=== PATIENT | male | born 1960 | race Two or more races ===

== ENCOUNTER 2017-03-24 05:05 | Inpatient (IN) | payer OTHER ==
[~2017-03-24] VITALS: Ht 172.7 cm; Wt 113.4 kg
[2017-03-24] VITALS (10 sets, daily range): BP systolic 135–170; BP diastolic 73–92
[2017-03-24] MEDS ORDERED: CELECOXIB 100 MG CAPSULE ONE (05:43)
[2017-03-24] MEDS ORDERED: oxyCODONE HCL SR 10MG TAB.SR.12H PO ONE (05:43)
[2017-03-24] MEDS ORDERED: ACETAMINOPHEN 325 MG TABLET ONE (05:43)
[2017-03-24] MEDS ORDERED: CEFAZOLIN SODIUM/DEXTROSE,ISO 100 ML IV ONE (05:44)
[2017-03-24] MEDS ORDERED: KETOROLAC TROMETHAMINE INJ 30 MG/ML VIAL ONE (05:56)
[2017-03-24] MEDS ORDERED: ANESTHESIA TRAY IN PYXIS 1 EA TRAY MC ONE (05:57)
[2017-03-24] MEDS ORDERED: BUPIVACAINE 0.5 % PF 150 MG/30 ML VIAL ONE (05:57)
[2017-03-24] MEDS ORDERED: BACITRACIN 50000 UNITS/VIAL ONE (05:57)
[2017-03-24] MEDS ORDERED: MIDAZOLAM HCL 2 MG/2ML VIAL ONE (06:22)
[2017-03-24] MEDS ORDERED: FENTANYL PF 100MCG/2ML AMPUL ONE (06:23)
[2017-03-24] MEDS ORDERED: KETAMINE HCL (500MG/10ML) 50 MG/ML VIAL ONE (06:23)
[2017-03-24] MEDS ORDERED: TRANEXAMIC ACID 3,000 MG in SODIUM CHLORIDE IRRIG SOLUTION 70 ML IR ONE (07:30)
[2017-03-24] MEDS ORDERED: DULCOLAX 10 MG/SUPP.RECT RC PRN (09:00)
[2017-03-24] MEDS ORDERED: AMBIEN 5 MG TABLET PO PRN (09:00)
[2017-03-24] MEDS ORDERED: TYLENOL 650 MG TABLET PO PRN (09:00)
[2017-03-24] MEDS ORDERED: HYDROCODONE/APAP 5/325MG 1 EACH TABLET PO PRN ×2 (09:00→13:00)
[2017-03-24] MEDS ORDERED: IV D5/0.45 NACL 1,000 ML IV PRN ×2 (09:00→10:50)
[2017-03-24] MEDS ORDERED: ZOFRAN 4mg/2ML IV PRN (09:00)
[2017-03-24] MEDS ORDERED: COLACE 250 MG CAPSULE PO PRN (09:00)
[2017-03-24] MEDS ORDERED: SENOKOT 8.6 MG TABLET PO PRN (09:00)
--- NOTE | 2017-03-24 09:15 | NUR ---
MS/petroleum terminal plant operator New admit from OR, s/p right knee arthroplasty by Dr Beltran. Vital signs upon return within normal range, no fever. Right knee with dressing, clean and dry. IV fluids infusing at 125ml/hr, no signs of infiltration. Family at bedside and both pateint and family updated as to plan of care for today. Oriented to new surroundings, aware of how to operate bed and how to call for help, stated understanding. Bed in low setting, side rails X2 in upright position, brakes locked. Call light within reach, will continue to monitor and ensure safety.
--- NOTE | 2017-03-24 10:15 | NUR ---
MS/RN Pain C/O pain 09/23 to right knee. [place] one tablet 5/325mg adminstered as ordered. Will monitor effectiveness.
[2017-03-24] MEDS ORDERED: ONDANSETRON HCL/PF 4 MG/2 ML VIAL IVP PRN (11:00)
[2017-03-24] MEDS ORDERED: Z GUARD REMEDY 2 OZ OINT TP PRN (11:00)
[2017-03-24] MEDS ORDERED: ACETAMINOPHEN 325 MG TABLET PO PRN (11:00)
[2017-03-24] MEDS ORDERED: MAG HYDROX/AL HYDROX/SIMETH 30 ML UDC PO PRN ×2 (11:00→13:30)
[2017-03-24] MEDS ORDERED: ZOLPIDEM TARTRATE 5 MG TABLET PO PRN (11:00)
[2017-03-24] MEDS ORDERED: MAGNESIUM HYDROXIDE 30 ML UDC PO PRN ×2 (11:00→13:30)
--- NOTE | 2017-03-24 11:30 | NUR ---
MS/RN Pain reassessment Patient stating that pain is now 2/10.
--- NOTE | 2017-03-24 12:56 | NUR ---
MS/RN Dr Damon Spoke with Dr Damon, stated that he would call pharmacy with new orders.
[2017-03-24] MEDS ORDERED: MENTHOL/CETYLPYRD (CEPACOL) 1 LOZ LOZENGE MM PRN (13:00)
[2017-03-24] MEDS ORDERED: diphenhydrAMINE HCL 25 MG CAPSULE PO PRN (13:00)
[2017-03-24] MEDS ORDERED: CLONIDINE HCL 0.1 MG TABLET PO PRN (13:00)
[2017-03-24] MEDS ORDERED: PROMETHAZINE HCL 25 MG/ML AMPUL IV PRN (13:30)
[2017-03-24] MEDS ORDERED: NALOXONE HCL 0.4 MG/ML AMPUL IV PRN (13:30)
[2017-03-24] MEDS: ANCEF 1 G in IV D5W 50 ML IV SCH ×2 (15:30→22:21)
--- NOTE | 2017-03-24 16:57 | NUR ---
MS/RN Schmidt removed Schmidt catheter removed per patient request, provided with urinal.
[2017-03-24] MEDS: MORPHINE SULFATE INJ 4 MG/ML DISP.SYRIN IV PRN ×2 (17:16→23:32)
[2017-03-24] MEDS: HYDROCODONE/APAP 10/325MG 1 EA TABLET PO PRN (19:27)
--- NOTE | 2017-03-24 19:42 | NUR ---
MS/RN End note No changes at this time. Patient voiding since martel catheter removed. Pain medication administered as requested. Ice pack to right knee placed. All needs attended, will endorse to health administrator.
--- NOTE | 2017-03-24 20:00 | NUR ---
RN NOTES PATIENT IN BED, ALERT AND ORIENTED X4, CALM, NO SOB, NO DISTRESS, S/P RIGHT KNEE ARTHROPLASTY, IMMOBILIZER IN PLACE, COMPLAINING OF 6/10 PAIN TO RIGHT KNEE, RECEIVED MORPHINE EARLIER. KEPT SAFE AND COMFORTABLE, AT THE BEDSIDE, CALL LIGHT WITHIN REACH.
[2017-03-24] MEDS: PANTOPRAZOLE 40 MG TABLET.DR PO SCH (21:34)
[2017-03-24] MEDS: TAMSULOSIN 0.4 MG CAP.SR.24H PO SCH (21:34)
[2017-03-25] MEDS: MORPHINE SULFATE INJ 4 MG/ML DISP.SYRIN IV PRN ×3 (02:50→12:37)
--- NOTE | 2017-03-25 06:43 | NUR ---
RN NOTES PATIENT IN BED, ALERT AND AWAKE, NO SOB, NO DISTRESS, PROVIDED PAIN MEDICATION PRN, NEEDS ATTENDED, AT THE BEDSIDE. CALL LIGHT WITHIN REACH.
[2017-03-25] MEDS: HYDROCODONE/APAP 10/325MG 1 EA TABLET PO PRN ×3 (07:17→14:10)
--- NOTE | 2017-03-25 07:30 | NUR ---
MS RN OPENING NOTES RECEIVED PATIENT IN STABLE CONDITION. IN NO APPARENT DISTRESS. BEDSIDE RAILS ARE UP X2 . BED IS LOCKED AND LOWERED. CALL LIGHT IS WITHIN REACH. WILL CONTINUE TO MONITOR.
[2017-03-25 08:00] VITALS: BP 147/83
[2017-03-25 08:50] LABS: BASOPHILS % (AUTO) 0.2 % (0.0-2.0); EOSINOPHILS # (AUTO) 0.1 /CMM (0.0-0.7); EOSINOPHILS % (AUTO) 0.5 % (0.0-6.0); HEMATOCRIT 44 % (39-51); HEMOGLOBIN 15.5 g/dL (13.5-17.5); LYMPHOCYTES # (AUTO) 1.6 /CMM (0.8-4.8); LYMPHOCYTES % (AUTO) 11.3 % (20.0-44.0); MEAN CORPUSCULAR HEMOGLOBIN 31 PG (26.0-33.0); MEAN CORPUSCULAR HGB CONC 35 g/dl (31.0-36.0); MEAN CORPUSCULAR VOLUME 88 fL (80-96); MONOCYTES % (AUTO) 7.5 % (2.0-12.0); NEUTROPHILS # (AUTO) 11.2 /CMM (1.8-8.9); NEUTROPHILS % (AUTO) 80.5 % (43.0-81.0); PLATELET COUNT (AUTO) 164 /CMM (150-450); RDW COEFFICIENT OF VARIATION 12.8 (11.5-15.0); RED BLOOD CELL COUNT(AUTO) 4.99 MIL/uL (4.5-6.0); WHITE BLOOD COUNT (AUTO) 13.9 K/uL (4.3-11.0)
[2017-03-25 09:02] LABS: ALBUMIN 3.8 g/dL (3.4-5.0); BILIRUBIN,TOTAL 1.2 mg/dL (0.2-1.0); CALCIUM, SERUM 9.2 mg/dL (8.5-10.1); CREATININE 1.1 mg/dL (0.6-1.3); MAGNESIUM 1.8 mg/dL (1.8-2.4); PHOSPHORUS 3.4 mg/dL (2.5-4.9); POTASSIUM 4.1 mmol/L (3.5-5.1); TOTAL PROTEIN, SERUM 7.5 g/dL (6.4-8.2)
[2017-03-25] MEDS: SENNOSIDES 8.6 MG TABLET PO SCH (09:02)
[2017-03-25 09:10] LABS: INR 0.99 (0.87-1.13); PROTHROMBIN TIME 10.3 SECS (9.5-12.7)
[2017-03-25 09:18] LABS: THYROID STIMULATING HORMONE 2.229 uIU/mL (0.358-3.74)
[2017-03-25 16:00] VITALS: BP 157/77
[2017-03-25] MEDS ORDERED: TRAMADOL HCL 50 MG TABLET PO PRN (16:00)
[2017-03-25] MEDS ORDERED: MORPHINE SULFATE INJ 4 MG/ML DISP.SYRIN IV PRN (16:00)
[2017-03-25] MEDS ORDERED: HYDROCODONE/APAP 5/325MG 1 EACH TABLET PO SCH (16:00)
[2017-03-25] MEDS: AMLODIPINE BESYLATE 5 MG TABLET PO SCH (16:13)
[2017-03-25] MEDS ORDERED: MAGNESIUM HYDROXIDE 30 ML UDC PO PRN (19:00)
[2017-03-25] MEDS ORDERED: HYDROCODONE/APAP 10/325MG 1 EA TABLET PO ONE (19:00)
[2017-03-25] MEDS ORDERED: MAGNESIUM CITRATE 296 ML BOTTLE PO PRN (19:00)
[2017-03-25] MEDS ORDERED: MAGNESIUM HYDROXIDE 30 ML UDC PO ONE (19:12)
--- NOTE | 2017-03-25 19:23 | NUR ---
MS RN CLOSING NOTES PATIENT IS ALERT AND RESTING IN BED. IN NO APPARENT DISTRESS. BEDSIDE RAILS ARE UP X2 . CALL LIGHT IS WITHIN REACH. ALL NEEDS WERE MET. BED IS LOCKED AND LOWERED. WILL ENDORSE CARE TO COFFEE MAKER SERVICER NURSE FOR [facility]ILLER.
[2017-03-25 20:00] VITALS: BP 141/73
[2017-03-25] MEDS: ASPIRIN 325 MG TABLET PO SCH (20:11)
--- NOTE | 2017-03-25 20:22 | NUR ---
MOM SCANNED AT FIRST AND DID NOT REGISTER. MOM CONTAINER UNABLE TO SCAN BECAUSE IT IS TORN. USED MANUAL CODING INSTEAD.
[2017-03-25 20:45] VITALS: BP 141/73
[2017-03-25] MEDS: TAMSULOSIN 0.4 MG CAP.SR.24H PO SCH (21:24)
[2017-03-25] MEDS: PANTOPRAZOLE 40 MG TABLET.DR PO SCH (21:24)
[2017-03-26] MEDS: HYDROCODONE/APAP 10/325MG 1 EA TABLET PO PRN ×4 (00:28→14:39)
[2017-03-26] MEDS: MORPHINE SULFATE INJ 4 MG/ML DISP.SYRIN IM PRN ×2 (03:12→08:53)
--- NOTE | 2017-03-26 06:32 | NUR ---
PATIENT IS ALERT AND AWAKE, NO DISTRESS, PROVIDED PAIN MEDICATION DURING SHIFT, HAD X1 BM, VOIDING WITHOUT DIFFICULTY, ALL NEEDS ATTENDED, AT THE BEDSIDE, CALL LIGHT WITHIN REACH.
--- NOTE | 2017-03-26 07:30 | NUR ---
MS RN OPENING NOTES RECEIVED PATIENT IN NO APPARENT DISTRESS. CALL LIGHT IS WITHIN REACH. BEDSIDE RAILS ARE UP X2 . BED IS LOCKED AND LOWERED. WILL CONTINUE TO MONITOR. IS AT BEDSIDE.
[2017-03-26 08:00] VITALS: BP 132/75
[2017-03-26] MEDS: SENNOSIDES 8.6 MG TABLET PO SCH (08:42)
[2017-03-26] MEDS: ASPIRIN 325 MG TABLET PO SCH (08:42)
[2017-03-26 08:43] VITALS: BP 132/75
[2017-03-26] MEDS: AMLODIPINE BESYLATE 5 MG TABLET PO SCH (08:43)
[2017-03-26] MEDS ORDERED: DOCUSATE SODIUM 100 MG CAPSULE PO SCH (09:00)
[2017-03-26] MEDS ORDERED: DOCU-141 PO (10:46)
[2017-03-26] MEDS ORDERED: TAMS-12 PO (10:46)
[2017-03-26] MEDS ORDERED: ASPI-992 PO (10:46)
[2017-03-26] MEDS ORDERED: AMLO5TAB2 PO (10:46)
--- NOTE | 2017-03-26 15:13 | NUR ---
PATIENT DISCHARGED IN STABLE CONDITION. IN NO APPARENT DISTRESS. IV WAS REMOVED. ID BAND WAS REMOVED. PATIENT ESCORTED OUT OF THE HOSPITAL BY STOCK DRIER TENDER VIA WHEELCHAIR. DRIVING.
== END 2017-03-26 15:30 | disposition home health service (06) | DRG 470 ==
LOC: DS 05:05 → MEDSG2 09:42
PROVIDERS: ADMIT Specialist; ATTEND Specialist
PROC: 0SRC0L9 Replacement of Right Knee Joint with Medial Unicondylar Synthetic Substitute, Cemented, Open Approach (ICD-10-PCS; principal; 2017-03-24 06:30)
DX: M17.11 Unilateral primary osteoarthritis, right knee (principal); D68.59 Other primary thrombophilia; M22.41 Chondromalacia patellae, right knee; S83.281A Other tear of lateral meniscus, current injury, right knee, initial encounter; X58.XXXA Exposure to other specified factors, initial encounter; Y93.9 Activity, unspecified; Y92.009 Unspecified place in unspecified non-institutional (private) residence as the place of occurrence of the external cause; E66.01 Morbid (severe) obesity due to excess calories; I10 Essential (primary) hypertension; Z68.38 Body mass index [BMI] 38.0-38.9, adult; E78.5 Hyperlipidemia, unspecified
CPT/HCPCS: 36415; 71045-TC; 80053-TC; 80061-TC; 82272-TC; 82746; 83540-TC; 83735-TC; 84100-TC; 84443-TC; 85025-TC; 85730-TC; 86850-TC; 86921-TC; 87081-TC; 88305-TC; 88311-TC; 97110-TC; 97116-TC; 97530-TC; 97760-TC; A4217; A6402; A6403; C1713; J0690; J1885; J2250; J2270; J2405; J2704; J3010; J3490; J7060; L1830; Z7610